=== PATIENT | female | born 2005 | race Caucasian/White ===

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

== ENCOUNTER 2024-10-28 07:54 | Outpatient (OUT) | payer MEDICAID, SELFPAY ==
--- OUTSIDE RECORDS SUMMARY | 2024-10-28 07:58 | XMS_ITS | CCD ---
Author Organization [facility] Care Team Providers Care Sales Representative Graphic Art Name Role Phone MD Kanwal Gunter Primary Care Provider [phone] MD Kanwal Gunter Attending Provider DR KANWAL GUNTER Primary Care Unavailable JANI, DR SCHOFIELD Admitting Unavailable JANI, DR SCHOFIELD Attending Unavailable JANI, DR SCHOFIELD Consulting Unavailable JANI, DR SCHOFIELD Admitting Unavailable JANI, DR SCHOFIELD Attending Unavailable JANI, DR SCHOFIELD Consulting Unavailable JANI, DR SCHOFIELD Primary Care Unavailable Kanwal Gunter Attending Unavailable Kanwal Gunter Primary Care Unavailable Kanwal Gunter Admitting Unavailable Problems Problem Classification Problem Date Documented Da te Episodic/Chronic Deficiency and other anemia (1 source) Anemia, unspecified; Translations: [ANEMIA UNSPECIFIED] Onset: 01-24-2022 Episodic Diabetes mellitus without complication (1 source) Other abnormal glucose; Translations: [OTHER ABNORMAL GLUCOSE] Onset: 01-24-2022 Episodic Peripheral and visceral atherosclerosis (4 sources) Peripheral vascular disease, unspecified; Translations: [PERIPHERAL VASCULAR DISEASE UNS] Onset: 02-22-2022 Chronic Unclassified (1 source) R06.02 - Shortness of breath; Translations: [R06.02 - Shortness of breath] Onset: 01-25-2022 Results Test Name Value Interpretation Reference Range Facility T4 [facility] 02-24-2022 T4 [Mass/Vol] 8.7 ug/dL Normal 4.5-12.0 [facility] Comment on above: Performed By: #### T 4LC #### [facility] [address] [address] [address] Jah Carcamo FREE T3on 02-22-2022 FREE T3 3.63 pg/mlL Normal 2.91-4.70 [facility] Comment on above: Performed By: #### T SH, FT3 #### [facility] [address] [address] [address] Jah Carcamo TSHon 02-22-2022 TSH 0.475 uIU/mL Critically low 0.516-4.130 [facility] Comment on above: Performed By: #### T SH, FT3 #### [facility] [address] [address] [address] Jah Carcamo TSH RANGE SEE BELOW Normal [facility] Comment on above: Result Comment: <0.3 4 UIU/ml HYPERTHYROID 0.34-5.60 UIU/ml EUTHYROID >5.60 UIU/ml HYPOTHYROID Performed By: #### T SH, FT3 #### [facility] [address] [address] [address] Jah Carcamo ECH echo transthoracicon ECH echo transthoracic [facility] [place] [place] [address] Echocardiogram Signed Patient: Kevin Figueredo MR#: [id number] 91 : 2005 Acct:[id number] Age/Sex: 16 / F ADM Date: 01/25/22 Loc: Room: Type: [facility] Attending Dr: Kanwal Gunter MD Ordering Provider: Kanwal Gunter MD Date of Service: 01/25/22/ ECH/ECH echo transthoracic: CHEST PAIN, SOB Copies to: MD Kanwal Denise MD : 2005 (MM/DD/YYYY) Gender: Female Age: 16 Years Ordering Physician: Kanwal Gunter Height: 67.72 in Weight: 145.002 lb Performed By: HANG Hernández BSA: 1.777 m2 HR: 58 bpm Reason For Study: CHEST PAIN, SOB History: ??Raynauds??, hypothyroidism + + MMode/2D Measurements Calculations IVSd: 0.92 cm RVDd: 2.26 cm IVSs: 0.82 cm LVIDd: 4.7 cm LVPWd: 0.83 cm LVIDs: 3.2 cm LVPWs: 1.05 cm FS: 31.4 % IVS/LVPW: 1.10 Ao root diam: 2.14 cm LA dimension: 3.1 cm LA/Ao: 1.45 Doppler Measurements Calculations MV E max joni: 98.5 cm/sec Lat Peak E' Joni: 17.5 cm/sec MV A max joni: 42.7 cm/sec Med Peak E' Joni: 13.9 cm/sec MV E/A: 2.31 E/E' med: 7.1 MV dec slope: 256.5 cm/sec?? MV dec time: 0.38 sec Interpretation Summary No cardiac disease identified. Cannot rule out bicuspid aortic valve based on these images. Recommend additional images at patient's convenience Study 2D M-Mode and Doppler with Color Flow. Levocardia. Abdominal situs solitus. Atrial situs solitus. D Ventricular Loop. S Normal position great vessels. Normal right atrial size. Normal left atrial size. Normal right ventricle structure and size. Normal left ventricle structure and size. Intact ventricular septum. Normal right ventricular systolic function. Normal left ventricular systolic function. Normal pulmonic valve velocity. Mild pulmonic valve insufficiency. Normal aortic valve velocity. No right pulmonary artery stenosis. No left pulmonary artery stenosis. Ascending aortic velocity normal. Descending aortic velocity normal. Normal tricuspid valve. Normal mitral valve. Normal pulmonic valve. Cannot rule out bicuspid aortic valve based on these images. Normal size aorta. No evidence of coarctation of the aorta. Normal pulmonary artery branches. No patent ductus arteriosus. Normal systemic venous drainage. Normal pulmonary venous drainage. Normal coronary artery origins. Normal superior vena cava velocity. Normal inferior vena cava velocity. Normal pulmonary vein velocity. Normal tricuspid valve velocity. Mild tricuspid valve insufficiency. Normal mitral valve velocity. No ventricular shunt. No patent ductus arteriosus detected. No pericardial effusion. + + + + + + : Electronically signed by: Nat Arroyo : : : : on: 01/27/2022, 8:28 PM : Transcribed By: ELOISA Performed At: 01/25/22 1445 Signed By: Nat Arroyo MD 01/27/222028 [facility] HILDA by IFAon 01-22-2022 Antinuclear Antibodies, IFA Negative Normal [facility] Comment on above: Result Comment: Nega tive <1:80 Borderline 1:80 Positive >1:80 ICAP nomenclature: AC-0 For more information about Hep-2 cell patterns use ANApatterns.org, the official website for the International Consensus on Antinuclear Antibody (HILDA) Patterns (ICAP). Performed By: #### C BC #### [facility] [address] [place] [address] Dr. Jah Carcamo ANTISTREPTOLYSIN O AB (ASO)o n 01-21-2022 Antistreptolysin O Ab 65.0 IU/mL Normal 0.0-200.0 [facility] Comment on above: Performed By: #### C BC #### [facility] [address] [place] [address] Dr. Jah Carcamo RHEUMATOID FACTORon 01-22-20 RA Latex Turbid. <10.0 Normal <14.0 [facility] Comment on above: Performed By: #### R F #### [facility] [address] [place] [address] Dr. Jah Carcamo CBC AUTO DIFFon 01-20-2022 BASO # 0.0 103/ul Normal 0.0-0.1 [facility] Comment on above: Performed By: #### C BC #### [facility] [address] [address] [address] Jah Carcamo Basophils/100 WBC (Bld) 0.6 % Normal 0.2-2.0 [facility] Comment on above: Performed By: #### C BC #### [facility] [address] [address] [address] Jah Carcamo EO # 0.3 103/ul Normal 0.0-0.7 [facility] Comment on above: Performed By: #### C BC #### [facility] [address] [address] [address] Jah Carcamo Eosinophils/100 WBC (Bld) 3.7 % Normal 0.9-7.0 [facility] Comment on above: Performed By: #### C BC #### [facility] [address] [address] [address] Jah Carcamo Erythrocyte distribution width (RBC) [Ratio] 15.5 % Critically high 11.0-15.0 [facility] Comment on above: Performed By: #### C BC #### [facility] [address] [address] [address] Jah Carcamo Hematocrit (Bld) [Volume fraction] 39.5 % Normal 36.0-48.0 [facility] Comment on above: Performed By: #### C BC #### [facility] [address] [address] [address] Jah Carcamo Hemoglobin (Bld) [Mass/Vol] 12.6 g/dL Normal 12.0-16.0 [facility] Comment on above: Performed By: #### C BC #### [facility] [address] [address] [address] Jah Carcamo IG # 0.02 10e3/ul Normal 0.00-0.03 [facility] Comment on above: Performed By: #### C BC #### [facility] [address] [place] [address] Dr. Jah Carcamo IG % 0.3 % Normal 0.0-0.5 [facility] Comment on above: Performed By: #### C BC #### [facility] [address] [place] [address] Dr. Jah Carcamo LYMPH # 2.8 103/ul Normal 1.2-3.8 [facility] Comment on above: Performed By: #### C BC #### [facility] [address] [place] [address] Dr. Jah Carcamo Lymphocytes/100 WBC (Bld) 39.9 % Normal 20.5-60.0 [facility] Comment on above: Performed By: #### C BC #### [facility] [address] [place] [address] Dr. Jah Carcamo MANUAL DIFF REQ NO Normal [facility] Comment on above: Performed By: #### C BC #### [facility] [address] [place] [address] Dr. Jah Carcamo MCH (RBC) [Entitic mass] 26.9 pg Normal 26.7-34.0 [facility] Comment on above: Performed By: #### C BC #### [facility] [address] [place] [address] Dr. Jah Carcamo MCHC (RBC) [Mass/Vol] 31.9 g/dL Normal 29.9-35.2 [facility] Comment on above: Performed By: #### C BC #### [facility] [address] [place] [address] Dr. Jah Carcamo MCV (RBC) [Entitic vol] 84.4 fL Normal 79.1-95.6 [facility] Comment on above: Performed By: #### C BC #### [facility] [address] [place] [address] Dr. Jah Carcamo MONO # 0.6 103/ul Normal 0.3-0.8 [facility] Comment on above: Performed By: #### C BC #### [facility] [address] [place] [address] Dr. Jah Carcamo Monocytes/100 WBC (Bld) 9.1 % Normal 1.7-12.0 [facility] Comment on above: Performed By: #### C BC #### [facility] [address] [place] [address] Dr. Jah Carcamo NEUT # 3.3 103/ul Normal 1.4-6.5 [facility] Comment on above: Performed By: #### C BC #### [facility] [address] [place] [address] Dr. Jah Carcamo Neutrophils/100 WBC (Bld) 46.4 % Normal 43.0-75.0 [facility] Comment on above: Performed By: #### C BC #### [facility] [address] [place] [address] Dr. Jah Carcamo Platelet mean volume (Bld) [Entitic vol] 10.0 fL Normal 9.5-13.5 [facility] Comment on above: Performed By: #### C BC #### [facility] [address] [place] [address] Dr. Jah Carcamo PLT 344 103/ul Normal 150-450 [facility] Comment on above: Performed By: #### C BC #### [facility] [address] [place] [address] Dr. Jah Carcamo RBC 4.68 106/ul Normal 3.40-5.30 [facility] Comment on above: Performed By: #### C BC #### [facility] [address] [place] [address] Dr. Jah Carcamo WBC 7.0 103/ul Normal 4.0-11.0 [facility] Comment on above: Performed By: #### C BC #### [facility] [address] [place] [address] Dr. Jah Carcamo CRPon 01-20-2022 CRP [Mass/Vol] mg/L Normal <=1.0 [facility] Comment on above: Performed By: #### C BC #### [facility] [address] [place] [address] Dr. Jah Carcamo FREE THYROXINE INDEX T7on FTI 0.63 Normal [facility] Comment on above: Performed By: #### L IPID, TSH, CMP, CRP, T7, URIC #### [facility] [address] [address] [address] Jah Carcamo T3U 33.0 % Normal 23.5-40.5 [facility] Comment on above: Performed By: #### L IPID, TSH, CMP, CRP, T7, URIC #### [facility] [address] [address] [address] Jah Carcamo T4 [Mass/Vol] 1.90 ug/dL Critically low 5.53-11.00 [facility] Comment on above: Performed By: #### L IPID, TSH, CMP, CRP, T7, URIC #### [facility] [address] [address] [address] Jah Carcamo GLYCOHEMOGLOBIN A1Con 2021 ADA RECOMMENDATION ADA THERAPEUTIC TARGET 6.0 - 7.0 ACTION SUGGESTED > 7.0 Normal [facility] Comment on above: Performed By: #### A 1C #### [facility] [address] [address] [address] Jah Carcamo Glucose [Mass/Vol] 91 mg/dL Normal [facility] Comment on above: Performed By: #### A 1C #### [facility] [address] [address] [address] Jah Carcamo HbA1c (Bld) [Mass fraction] 4.8 % Normal <=6.0 [facility] Comment on above: Performed By: #### A 1C #### [facility] [address] [address] [address] Jah Carcamo IRONon 01-20-2022 Iron [Mass/Vol] 151.0 ug/dL Normal 37.0-170.0 [facility] Comment on above: Performed By: #### I ANABELLA #### [facility] [address] [address] [address] Jah Carcamo LIPID PROFILEon 01-20-2022 CHOL-HDL RATIO NORM SEE BELOW Normal [facility] Comment on above: Result Comment: 3.3 - 4.4 LOW RISK 4.4 - 7.1 AVERAGE RISK 7.1 - 11.0 MODERATE RISK >11.0 HIGH RISK Performed By: #### C BC #### [facility] [address] [address] [address] Jah Carcamo Cholesterol [Mass/Vol] 147 mg/dL Normal 104-227 [facility] Comment on above: Performed By: #### C BC #### [facility] [address] [address] [address] Jah Carcamo Cholesterol in HDL [Mass/Vol] 53 mg/dL Normal 29-69 [facility] Comment on above: Performed By: #### C BC #### [facility] [address] [place] [address] Dr. Jah Carcamo Cholesterol in LDL [Mass/Vol] 82.8 mg/dL Normal 46.0-140.0 [facility] Comment on above: Performed By: #### C BC #### [facility] [address] [address] [address] Jah Carcamo Cholesterol.total/Chol esterol in HDL [Mass ratio] 2.8 {ratio} Normal [facility] Comment on above: Performed By: #### C BC #### [facility] [address] [place] [address] Dr. Jah Carcamo HDL NORMAL > or = 60 mg/dl - LOW CARDIOVASCULAR RISK <40 mg/dl - HIGH CARDIOVASCULAR RISK Normal [facility] Comment on above: Performed By: #### C BC #### [facility] [address] [place] [address] Dr. Jah Carcamo LDL CALC NORMAL SEE BELOW Normal [facility] Comment on above: Result Comment: <100 mg/dl OPTIMAL 100 - 129 mg/dl NEAR OR ABOVE OPTIMAL 130 - 159 mg/dl BORDERLINE HIGH 160 - 189 mg/dl HIGH >190 mg/dl VERY HIGH Performed By: #### C BC #### [facility] [address] [place], [place] [address] Dr. Jah Carcamo Triglyceride [Mass/Vol] 56 mg/dL Normal 53-208 [facility] Comment on above: Performed By: #### C BC #### [facility] [address] [place] [address] Dr. Jah Cacramo VLDL CALC 11.2 mg/dL Normal [facility] Comment on above: Performed By: #### C BC #### [facility] [address] [place] [address] Dr. Jah Carcamo PROF 14(COMP METB)on 022 Albumin [Mass/Vol] 3.9 g/dL Normal 3.4-5.0 [facility] Comment on above: Performed By: #### C BC #### [facility] [address] [place] [address] Dr. Jah Carcamo Albumin/Globulin [Mass ratio] 1.0 {ratio} Normal [facility] Comment on above: Performed By: #### C BC #### [facility] [address] [place] [address] Dr. Jah Carcamo ALP [Catalytic activity/Vol] 69 U/L Normal 65-260 [facility] Comment on above: Performed By: #### C BC #### [facility] [address] [place] [address] Dr. Jah Carcamo ALT [Catalytic activity/Vol] 14 U/L Normal 14-59 [facility] Comment on above: Performed By: #### C BC #### [facility] [address] [place] [address] Dr. Jah Carcamo Anion gap [Moles/Vol] 12.3 mmol/L Normal [facility] Comment on above: Performed By: #### C BC #### [facility] [address] [place] [address] Dr. Jah Carcamo AST [Catalytic activity/Vol] 17 U/L Normal 15-37 [facility] Comment on above: Performed By: #### C BC #### [facility] [address] [place] [address] Dr. Jah Carcamo Bilirubin [Mass/Vol] 0.6 mg/dL Normal 0.2-1.3 [facility] Comment on above: Performed By: #### C BC #### [facility] [address] [place] [address] Dr. Jah Carcamo Calcium [Mass/Vol] 9.0 mg/dL Normal 8.5-10.1 [facility] Comment on above: Performed By: #### C BC #### [facility] [address] [address] [address] Jah Carcamo Chloride [Moles/Vol] 105 mmol/L Normal 98-107 [facility] Comment on above: Performed By: #### C BC #### [facility] [address] [address] [address] Jah Carcamo CO2 [Moles/Vol] 26.3 mmol/L Normal 22.0-30.[address] [facility] Comment on above: Performed By: #### C BC #### [facility] [address] [place] [address] Dr. Jah Carcamo Creatinine [Mass/Vol] 0.66 mg/dL Normal 0.52-1.04 [facility] Comment on above: Performed By: #### C BC #### [facility] [address] [place] [address] Dr. Jah Carcamo Globulin (S) [Mass/Vol] 3.7 g/dL Normal [facility] Comment on above: Performed By: #### C BC #### [facility] [address] [place] [address] Dr. Jah Carcamo Glucose [Mass/Vol] 85 mg/dL Normal 74-106 [facility] Comment on above: Performed By: #### C BC #### [facility] [address] [place] [address] Dr. Jah Carcamo Potassium [Moles/Vol] 3.6 mmol/L Normal 3.4-5.0 [facility] Comment on above: Performed By: #### C BC #### [facility] [address] [place] [address] Dr. Jah Carcamo Protein [Mass/Vol] 7.6 g/dL Normal 6.1-8.2 [facility] Comment on above: Performed By: #### C BC #### [facility] [address] [place] [address] Dr. Jah Carcamo Sodium [Moles/Vol] 140 mmol/L Normal 137-145 [facility] Comment on above: Performed By: #### C BC #### [facility] [address] [place] [address] Dr. Jah Carcamo Urea nitrogen [Mass/Vol] 9.0 mg/dL Normal 6.4-19.3 [facility] Comment on above: Performed By: #### C BC #### [facility] [address] [place] [address] Dr. Jah Carcamo Urea nitrogen/Creatinine [Mass ratio] 13.6 mg/mg Normal [facility] Comment on above: Performed By: #### C BC #### [facility] [address] [place] [address] Dr. Jah Carcamo SED RATE WESTERGRENon 2021 SED RATE <1 Normal <=20 [facility] Comment on above: Performed By: #### S EDR #### [facility] [address] [place] [address] Dr. Jah Carcamo TSHon 01-20-2022 TSH 1.771 uIU/mL Normal 0.430-3.750 [facility] Comment on above: Performed By: #### L IPID, TSH, CMP, CRP, T7, URIC #### [facility] [address] [place] [address] Dr. Jah Carcamo TSH RANGE SEE BELOW Normal [facility] Comment on above: Result Comment: <0.3 4 UIU/ml HYPERTHYROID 0.34-5.60 UIU/ml EUTHYROID >5.60 UIU/ml HYPOTHYROID Performed By: #### L IPID, TSH, CMP, CRP, T7, URIC #### [facility] [address] [place] [address] Dr. Jah Carcamo URIC ACID SERUMon 01-20-2022 Urate [Mass/Vol] 4.8 mg/dL Normal 2.5-6.2 [facility] Comment on above: Performed By: #### C BC #### [facility] [address] [place] [address] Dr. Jah Carcamo Encounters Encounter Date Encounter Type Care Provider Facility Start: 02-22-2022 End: 02-23-[address] KANWAL GUNTER Facility:[facility] Start: 01-25-2022 End: 01-25-2022 ambulatory Kanwal Gunter Facility:[facility] Start: 01-25-2022 End: 01-25-2022 Patient encounter procedure MD Kanwal Gunter Work Phone: [facility] Start: 01-20-2022 End: 01-21-[address] KANWAL GUNTER Facility: Payers Date Payer Category Payer Self-pay [id number] 2022 Unknown [id number] 1982 Unknown [id number] 1982 Unknown [id number] [id number] [id number] 1959 Unknown [id number] Unknown [id number] [id number] Social History Date Type Detail Facility Tobacco smoking stat [facility] Unknown if ever smoked [facility] Work Phone: Start: 2005 Sex Assigned At Female F [facility] Evaluation note Note Date & Type Note Facility Evaluation note No assessment information availa ble [facility] Work Phone: Chief Complaint and Reason for Visit Chief Complaint chest pain, sob Advance Directives No Advanced Directives Records Found Advance Directive Response Recorded Date/ Time Advance Directives No January 20 11:51am Summary Purpose Family History No Family History Records FoundNo Family History Records Found Additional Source Comments Care Teams (unrecognized sec tion and content) Team Status: Inactive Member Role Status Dates Kanwal Gunter MD Primary Care Provider, Attending Pr manjit Active Team Status: Active Member Role Status Dates Kanwal Gunter MD Primary Care Provider Active Goals (unrecognized section and content) Goals may be documented in a n alternate section INFORMATION SOURCE (unrecogn ized section and content) DATE CREATED AUTHOR 02/25/2022 [facility] DATE CREATED AUTHOR AUTHOR'S JILL LOMAS 11/04/2022 [facility] FOR RECORDS PERTAINING TO PATIENTS WHO ARE OR HAVE BEEN ENROLLED IN A CHEMICAL DEPENDENCY/SUBSTANCEABUSE PROGRAM, SOME INFORMATION MAY BE OMITTED. This clinical summary was aggregated from multiple sources. Caution should be exercised in using it in the provision of clinical care. This summary normalizes information from multiple sources, and as a consequence, information in this document may materially change the coding, format and clinical context of patient data. In addition, data may be omitted in some cases. CLINICAL DECISIONS SHOULD BE BASED ON THE PRIMARY CLINICAL RECORDS. [employer] provides no warranty or guarantee of the accuracy or completeness of information in this document.
[2024-10-28 08:21] LABS: Basophils Absolute Auto 0.1 10^3/uL (0.0-0.1); Basophils Percent Auto 1.1 % (0.2-2.0); Eosinophils Absolute Auto 0.5 10^3/uL (0.0-0.7); Eosinophils Percent Auto 7.6 % (0.9-7.0); Hematocrit 42.1 % (36.0-48.0); Hemoglobin 13.8 g/dL (12.0-16.0); Immature Granulocytes Abs Auto 0.02 10^3/uL (0.00-0.03); Immature Granulocytes Pct Auto 0.3 % (0.0-0.5); Lymphocytes Absolute Auto 2.3 10^3/uL (1.2-3.8); Lymphocytes Percent Auto 36.2 % (20.5-60.0); Mean Corpuscular HGB Conc 32.8 g/dL (29.9-35.2); Mean Corpuscular Hemoglobin 29.1 pg (26.7-34.0); Mean Corpuscular Volume 88.6 fL (81.0-99.0); Mean Platelet Volume 9.8 fL (9.5-13.5); Monocytes Absolute Auto 0.4 10^3/uL (0.3-0.8); Neutrophils Absolute Auto 3.2 10^3/uL (1.4-6.5); Neutrophils Percent Auto 48.8 % (43.0-75.0); Platelet Count 407 10^3/uL (150-450); Red Blood Count 4.75 10^6/uL (4.20-5.40); Red Cell Distribution Width 13.3 % (11.0-15.0); White Blood Count 6.5 10^3/uL (4.0-11.0)
[2024-10-28 09:00] LABS: Estimated Average Glucose 88 mg/dL; Glycohemoglobin A1C 4.7 % (4.5-6.2)
[2024-10-28 10:14] LABS: Alanine Aminotransferase 17 U/L (14-59); Alkaline Phosphatase 43 U/L (46-116); Anion Gap 12.5; Aspartate Amino Transferase 14 U/L (15-37); Bilirubin Total 0.4 mg/dL (0.2-1.0); Calcium 9.5 mg/dL (8.5-10.1); Carbon Dioxide 24.4 mmol/L (21.0-32.0); Chloride 106 mmol/L (98-107); Chol HDL Ratio 3.7; Cholesterol 220 mg/dL (104-227); Estimated GFR (African America >60 (>=60 mL/min/1.73m^2); Estimated GFR (Non-African Ame >60 (>=60 mL/min/1.73m^2); Free T3 2.33 pg/mL (2.91-4.70); Globulin 3.9 g/dL; Glucose 75 mg/dL (74-106); HDL Cholesterol 60 mg/dL (29-69); LDL Cholesterol Calculated 145.4 mg/dL; Potassium 3.9 mmol/L (3.5-5.1); Sodium 139 mmol/L (136-145); Thyroid Stimulating Hormone 0.697 uIU/mL (0.516-4.130); Total Protein 7.9 g/dL (6.4-8.2); Triglycerides 73 mg/dL (53-208); VLDL CHOLESTEROL 14.6 mg/dL
== END 2024-10-28 07:55 | disposition home or self-care (01) ==
LOC: LAB 07:55
PROVIDERS: PCP Family Medicine; Visit Provider Family Medicine
DX: I73.00 Raynaud's syndrome without gangrene (principal); R73.09 Other abnormal glucose; D64.9 Anemia, unspecified
CPT/HCPCS: 36415; 80053; 80061; 82306; 83036; 83540; 84436; 84443; 84481; 85025

== ENCOUNTER 2025-02-06 20:02 | Emergency (ER) | payer SELFPAY ==
[2025-02-06 20:08] VITALS: BP 131/90; PULSE 59; TEMP 37.1; O2SAT 99; BMI 23.5
--- OUTSIDE RECORDS SUMMARY | 2025-02-06 20:08 | XMS_ITS | CCD ---
Author Organization [facility] Care Team Providers Care Adolescent Coordinator Name Role Phone MD Kanwal Gunter Primary Care Provider [phone] MD Kanwal Gunter Attending Provider DR KANWAL GUNTER Primary Care Unavailable JANI, DR SCHOFIELD Admitting Unavailable JANI, DR SCHOFIELD Attending Unavailable JANI, DR SCHOFIELD Consulting Unavailable JANI, DR SCHOFIELD Admitting Unavailable JANI, DR SCHOFIELD Attending Unavailable JANI, DR SCHOFIELD Consulting Unavailable JANI, DR SCHOFIELD Primary Care Unavailable Kanwal Gunter Attending Unavailable Kanwal Gunter Primary Care Unavailable Kanwal Gunter Admitting Unavailable Kanwal Gunter MD Primary Care Provider [phone] Kanwal Gunter MD Primary Care Provider [phone] Medications Current Medications Medication Drug Class(es) Dates Sig (Normalized) Sig (Original) cholecalciferol 0.025 mg oral tablet (2 sources) Vitamin D take 1 tablet by mouth in the morning cholecalciferol 1,000 units tablet Take 1 tablet (1,000 Units total) by mouth in the morning. Active Ethinyl Estradiol / Ferrous fumarate / Norethindrone (2 sources) Estrogen take 1 tablet by mouth once daily LO LOESTRIN FE 1 mg-10 mcg (24)/10 mcg (2) tablet TAKE 1 TABLET BY MOUTH 1 TIME EACH DAY AT THE SAME TIME. Active levothyroxine sodium 0.075 mg oral tablet (2 sources) l-Thyroxine levothyroxine (SYNTHROID, LEVOTHROID) 75 MCG tablet TAKE 1 TABLET BY MOUTH EVERY MORNING ON AN EMPTY STOMACH ONCE A DAY 30 DAYS Active tadalafil 5 mg oral tablet (1 source) Phosphodiesterase 5 Inhibitor Start: take 1 tablet by mouth every other day tadalafiL (CIALIS) 5 mg tablet Indications: Raynaud's disease without gangrene , Acrocyanosis Take 1 tablet (5 mg total) by mouth every other day. 30 tablet 5 01/08/2025 Active Problems Problem Classification Problem Date Documented Da te Episodic/Chronic Deficiency and other anemia (1 source) Anemia, unspecified; Translations: [ANEMIA UNSPECIFIED] Onset: 01-24-2022 Episodic Diabetes mellitus without complication (1 source) Other abnormal glucose; Translations: [OTHER ABNORMAL GLUCOSE] Onset: 01-24-2022 Episodic Other circulatory disease (6 sources) Raynaud's disease; Translations: [Raynaud's syndrome without gangrene] 12-02-2024 Chronic Other circulatory disease (2 sources) Acrocyanosis; Translations: [Other specified peripheral vascular diseases] 01-08-2025 Chronic Other skin disorders (2 sources) Discoloration of skin; Translations: [Disorder of pigmentation, unspecified] Onset: 12-02-2024 12-02-2024 Episodic Peripheral and visceral atherosclerosis (4 sources) Peripheral vascular disease, unspecified; Translations: [PERIPHERAL VASCULAR DISEASE UNS] Onset: 02-22-2022 Chronic Unclassified (1 source) R06.02 - Shortness of breath; Translations: [R06.02 - Shortness of breath] Onset: 01-25-2022 Results Test Name Value Interpretation Reference Range Facility C-reactive proteinon 025 CRP [Mass/Vol] 0.4 mg/dL 0.000 - 0.744 mg/dL [facility] CRP [Mass/Vol]on 12-01-2024 [facility] ESR Photometric method (Bld) [Velocity]on 12-01-2024 [facility] Erythrocyte Sedimentation Ra te (ESR)on 12-01-2024 ESR Photometric method (Bld) [Velocity] 3 mm/h 0 - 20 mm/h [facility] HCG.beta subunit IA 3rd IS Q non 12-01-2024 HCG.beta subunit Qn mIU/mL [facility] Comment on above: NEW REFERENCE RANGE WEEKS (SINCE LMP) MIU/mL 3 WEEKS 5 - 50 4 WEEKS 5 - 426 5 WEEKS 18 - 7,340 6 WEEKS 1,080 - 56,500 7-8 WEEKS 7,650 - 229,000 9-12 WEEKS 25,700 - 288,000 13-16 WEEKS 13,300 - 254,000 17-24 WEEKS 4,060 - 165,400 25-40 WEEKS 3,640 - 117,000 MALES AND NON- FEMALES - <5 MIU/mL This test has been FDA approved for use in only. Elevated levels are not necessarily diagnostic for trophoblastic or nontrophoblastic neoplasms. [facility] Thyroid profile includes TSH FT4on 12-01-2024 Free T4 [Mass/Vol] 0.94 ng/dL 0.61 - 1. 60 ng/dL [facility] TSH Qn 0.53 m[IU]/L [facility] T4 [facility]on 02-24-2022 T4 [Mass/Vol] 8.7 ug/dL Normal 4.5-12.0 [facility] Comment on above: Performed By: #### T 4LC #### [facility] [address] [place] [address] Dr. Jah Carcamo FREE T3on 02-22-2022 FREE T3 3.63 pg/mlL Normal 2.91-4.70 [facility] Comment on above: Performed By: #### T SH, FT3 #### [facility] [address] [place] [address] Dr. Jah Carcamo TSHon 02-22-2022 TSH 0.475 uIU/mL Critically low 0.516-4.130 [facility] Comment on above: Performed By: #### T SH, FT3 #### [facility] [address] [place] [address] Dr. Jah Carcamo TSH RANGE SEE BELOW Normal [facility] Comment on above: Result Comment: <0.3 4 UIU/ml HYPERTHYROID 0.34-5.60 UIU/ml EUTHYROID >5.60 UIU/ml HYPOTHYROID Performed By: #### T SH, FT3 #### [facility] [address] [place] [address] Dr. Jah Carcamo ECH echo transthoracicon [facility] echo transthoracic [facility] [place] [address] Echocardiogram Signed Patient: Mitra Castillo MR#: [id number] 91 : 2005 Acct:[id number] Age/Sex: 16 / F ADM Date: 01/25/22 Loc: Room: Type: [facility] Attending Dr: Kanwal Gunter MD Ordering Provider: Kanwal Gunter MD Date of Service: 01/25/22/ [facility] echo transthoracic: CHEST PAIN, SOB Copies to: [...] 1445 Signed By: Nat Arroyo MD 01/27/222028 [facility] HILDA by IFAon 01-22-2022 Antinuclear Antibodies, IFA Negative Normal [facility] Comment on above: Result Comment: Nega tive <1:80 Borderline 1:80 Positive >1:80 ICAP nomenclature: AC-0 For more information about Hep-2 cell patterns use ANApatterns.org, the official website for the International Consensus on Antinuclear Antibody (HILDA) Patterns (ICAP). Performed By: #### C BC #### [facility] [address] [place] [address] Dr. Jah Carcamo ANTISTREPTOLYSIN O AB (ASO)o n 01-21-2022 Antistreptolysin O Ab 65.0 IU/mL Normal 0.0-200.0 [facility] Comment on above: Performed By: #### C BC #### [facility] [address] [place] [address] Dr. Jah Carcamo RHEUMATOID FACTORon 01-22-20 RA Latex Turbid. <10.0 Normal <14.0 [facility] Comment on above: Performed By: #### R F #### [facility] [address] [place] [address] Dr. Jah Carcamo CBC AUTO DIFFon 01-20-2022 BASO # 0.0 103/ul Normal 0.0-0.1 [facility] Comment on above: Performed By: #### C BC #### [facility] [address] [place] [address] Dr. Jah Carcamo Basophils/100 WBC (Bld) 0.6 % Normal 0.2-2.0 [facility] Comment on above: Performed By: #### C BC #### [facility] [address] [place] [address] Dr. Jah Carcamo EO # 0.3 103/ul Normal 0.0-0.7 [facility] Comment on above: Performed By: #### C BC #### [facility] [address] [place] [address] Dr. Jah Carcamo Eosinophils/100 WBC (Bld) 3.7 % Normal 0.9-7.0 [facility] Comment on above: Performed By: #### C BC #### [facility] [address] [place] [address] Dr. Jah Carcamo Erythrocyte distribution width (RBC) [Ratio] 15.5 % Critically high 11.0-15.0 [facility] Comment on above: Performed By: #### C BC #### [facility] [address] [place] [address] Dr. Jah Carcamo Hematocrit (Bld) [Volume fraction] 39.5 % Normal 36.0-48.0 [facility] Comment on above: Performed By: #### C BC #### [facility] [address] [place] [address] Dr. Jah Carcamo Hemoglobin (Bld) [Mass/Vol] 12.6 g/dL Normal 12.0-16.0 [facility] Comment on above: Performed By: #### C BC #### [facility] [address] [place] [address] Dr. Jah Carcamo IG # 0.02 10e3/ul Normal 0.00-0.03 [facility] Comment on above: Performed By: #### C BC #### [facility] [address] [place] [address] Dr. Jah Carcamo IG % 0.3 % Normal 0.0-0.5 [facility] Comment on above: Performed By: #### C BC #### [facility] [address] [place] [address] Dr. Jah Carcamo LYMPH # 2.8 103/ul Normal 1.2-3.8 [facility] Comment on above: Performed By: #### C BC #### [facility] [address] [place] [address] Dr. Jah Carcamo Lymphocytes/100 WBC (Bld) 39.9 % Normal 20.5-60.0 [facility] Comment on above: Performed By: #### C BC #### [facility] [address] [place] [address] Dr. Jah Carcamo MANUAL DIFF REQ NO Normal [facility] Comment on above: Performed By: #### C BC #### [facility] [address] [place] [address] Dr. Jah Carcamo MCH (RBC) [Entitic mass] 26.9 pg Normal 26.7-34.0 [facility] Comment on above: Performed By: #### C BC #### [facility] [address] [place] [address] Dr. Jah Carcamo MCHC (RBC) [Mass/Vol] 31.9 g/dL Normal 29.9-35.2 [facility] Comment on above: Performed By: #### C BC #### [facility] [address] [place] [address] Dr. Jah Carcamo MCV (RBC) [Entitic vol] 84.4 fL Normal 79.1-95.6 [facility] Comment on above: Performed By: #### C BC #### [facility] [address] [place] [address] Dr. Jah Carcmao MONO # 0.6 103/ul Normal 0.3-0.8 [facility] Comment on above: Performed By: #### C BC #### [facility] [address] [place] [address] Dr. Jah Carcamo Monocytes/100 WBC (Bld) 9.1 % Normal 1.7-12.0 [facility] Comment on above: Performed By: #### C BC #### [facility] [address] [place] [address] Dr. Jah Carcamo NEUT # 3.3 103/ul Normal 1.4-6.5 [facility] Comment on above: Performed By: #### C BC #### [facility] [address] [place] [address] Dr. Jah Carcamo Neutrophils/100 WBC (Bld) 46.4 % Normal 43.0-75.0 [facility] Comment on above: Performed By: #### C BC #### [facility] [address] [place] [address] Dr. Jah Carcamo Platelet mean volume (Bld) [Entitic vol] 10.0 fL Normal 9.5-13.5 [facility] Comment on above: Performed By: #### C BC #### [facility] [address] [place] [address] Dr. Jah Carcamo PLT 344 103/ul Normal 150-450 [facility] Comment on above: Performed By: #### C BC #### [facility] [address] [place] [address] Dr. Jah Carcamo RBC 4.68 106/ul Normal 3.40-5.30 [facility] Comment on above: Performed By: #### C BC #### [facility] [address] [place] [address] Dr. Jah Carcamo WBC 7.0 103/ul Normal 4.0-11.0 [facility] Comment on above: Performed By: #### C BC #### [facility] [address] [place] [address] Dr. Jah Carcamo CRPon 01-20-2022 CRP [Mass/Vol] mg/L Normal <=1.0 [facility] Comment on above: Performed By: #### C BC #### [facility] [address] [place] [address] Dr. Jah Carcamo FREE THYROXINE INDEX T7on FTI 0.63 Normal [facility] Comment on above: Performed By: #### L IPID, TSH, CMP, CRP, T7, URIC #### [facility] [address] [place] [address] Dr. Jah Carcamo T3U 33.0 % Normal 23.5-40.5 [facility] Comment on above: Performed By: #### L IPID, TSH, CMP, CRP, T7, URIC #### [facility] [address] [place] [address] Dr. Jah Carcamo T4 [Mass/Vol] 1.90 ug/dL Critically low 5.53-11.00 [facility] Comment on above: Performed By: #### L IPID, TSH, CMP, CRP, T7, URIC #### [facility] [address] [address] [address] Jah Carcamo GLYCOHEMOGLOBIN A1Con 2021 ADA RECOMMENDATION ADA THERAPEUTIC TARGET 6.0 - 7.0 ACTION SUGGESTED > 7.0 Normal [facility] Comment on above: Performed By: #### A 1C #### [facility] [address] [place], [place] [address] Dr. Jah Carcamo Glucose [Mass/Vol] 91 mg/dL Normal [facility] Comment on above: Performed By: #### A 1C #### [facility] [address] [address] [address] Jah Carcamo HbA1c (Bld) [Mass fraction] 4.8 % Normal <=6.0 [facility] Comment on above: Performed By: #### A 1C #### [facility] [address] [place] [address] Dr. Jah Carcamo IRONon 01-20-2022 Iron [Mass/Vol] 151.0 ug/dL Normal 37.0-170.0 [facility] Comment on above: Performed By: #### I ANABELLA #### [facility] [address] [place] [address] Dr. Jah Carcamo LIPID PROFILEon 01-20-2022 CHOL-HDL RATIO NORM SEE BELOW Normal [facility] Comment on above: Result Comment: 3.3 - 4.4 LOW RISK 4.4 - 7.1 AVERAGE RISK 7.1 - 11.0 MODERATE RISK >11.0 HIGH RISK Performed By: #### C BC #### [facility] [address] [place] [address] Dr. Jah Carcamo Cholesterol [Mass/Vol] 147 mg/dL Normal 104-227 [facility] Comment on above: Performed By: #### C BC #### [facility] [id number] Jah Carcamo Cholesterol in HDL [Mass/Vol] 53 mg/dL Normal 29-69 [facility] Comment on above: Performed By: #### C BC #### [facility] [address] [address] [address] Jah Carcamo Cholesterol in LDL [Mass/Vol] 82.8 mg/dL Normal 46.0-140.0 [facility] Comment on above: Performed By: #### C BC #### [facility] [address] [address] [address] Jah Carcamo Cholesterol.total/Cho lesterol in HDL [Mass ratio] 2.8 {ratio} Normal [facility] Comment on above: Performed By: #### C BC #### [facility] [address] [address] [address] Jah Carcamo HDL NORMAL > or = 60 mg/dl - LO W CARDIOVASCULAR RISK <40 mg/dl - HIGH CARDIOVASCULAR RISK Normal [facility] Comment on above: Performed By: #### C BC #### [facility] [address] [place] [address] Dr. Jah Carcamo LDL CALC NORMAL SEE BELOW Normal [facility] Comment on above: Result Comment: <100 mg/dl OPTIMAL 100 - 129 mg/dl NEAR OR ABOVE OPTIMAL 130 - 159 mg/dl BORDERLINE HIGH 160 - 189 mg/dl HIGH >190 mg/dl VERY HIGH Performed By: #### C BC #### [facility] [address] [place] [address] Dr. Jah Carcamo Triglyceride [Mass/Vol] 56 mg/dL Normal 53-208 [facility] Comment on above: Performed By: #### C BC #### [facility] [address] [place] [address] Dr. Jah Carcamo VLDL CALC 11.2 mg/dL Normal [facility] Comment on above: Performed By: #### C BC #### [facility] [address] [place] [address] Dr. Jah Carcamo PROF 14(COMP METB)on 022 Albumin [Mass/Vol] 3.9 g/dL Normal 3.4-5.0 [facility] Comment on above: Performed By: #### C BC #### [facility] [address] [place] [address] Dr. Jah Carcamo Albumin/Globulin [Mass ratio] 1.0 {ratio} Normal [facility] Comment on above: Performed By: #### C BC #### [facility] [address] [place] [address] Dr. Jah Carcamo ALP [Catalytic activity/Vol] 69 U/L Normal 65-260 [facility] Comment on above: Performed By: #### C BC #### [facility] [address] [place] [address] Dr. Jah Carcamo ALT [Catalytic activity/Vol] 14 U/L Normal 14-59 [facility] Comment on above: Performed By: #### C BC #### [facility] [address] [place] [address] Dr. Jah Carcamo Anion gap [Moles/Vol] 12.3 mmol/L Normal [facility] Comment on above: Performed By: #### C BC #### [facility] [address] [place] [address] Dr. Jah Carcamo AST [Catalytic activity/Vol] 17 U/L Normal 15-37 [facility] Comment on above: Performed By: #### C BC #### [facility] [address] [place] [address] Dr. Jah Carcamo Bilirubin [Mass/Vol] 0.6 mg/dL Normal 0.2-1.3 [facility] Comment on above: Performed By: #### C BC #### [facility] [address] [place] [address] Dr. Jah Carcamo Calcium [Mass/Vol] 9.0 mg/dL Normal 8.5-10.1 [facility] Comment on above: Performed By: #### C BC #### [facility] [address] [place] [address] Dr. Jah Carcamo Chloride [Moles/Vol] 105 mmol/L Normal 98-107 [facility] Comment on above: Performed By: #### C BC #### [facility] [address] [place] [address] Dr. Jah Carcamo CO2 [Moles/Vol] 26.3 mmol/L Normal 22.0-30.0 [facility] Comment on above: Performed By: #### C BC #### [facility] [address] [place] [address] Dr. Jah Carcamo Creatinine [Mass/Vol] 0.66 mg/dL Normal 0.52-1.04 [facility] Comment on above: Performed By: #### C BC #### [facility] [address] [place] [address] Dr. Jah Carcamo Globulin (S) [Mass/Vol] 3.7 g/dL Normal [facility] Comment on above: Performed By: #### C BC #### [facility] [address] [place] [address] Dr. Jah Carcamo Glucose [Mass/Vol] 85 mg/dL Normal 74-106 [facility] Comment on above: Performed By: #### C BC #### [facility] [address] [place] [address] Dr. Jah Carcamo Potassium [Moles/Vol] 3.6 mmol/L Normal 3.4-5.0 [facility] Comment on above: Performed By: #### C BC #### [facility] [address] [place] [address] Dr. Jah Carcamo Protein [Mass/Vol] 7.6 g/dL Normal 6.1-8.2 [facility] Comment on above: Performed By: #### C BC #### [facility] [address] [place] [address] Dr. Jah Carcamo Sodium [Moles/Vol] 140 mmol/L Normal 137-145 [facility] Comment on above: Performed By: #### C BC #### [facility] [address] [place] [address] Dr. Jah Carcamo Urea nitrogen [Mass/Vol] 9.0 mg/dL Normal 6.4-19.3 [facility] Comment on above: Performed By: #### C BC #### [facility] [address] [place] [address] Dr. Jah Carcamo Urea nitrogen/Creatinine [Mass ratio] 13.6 mg/mg Normal [facility] Comment on above: Performed By: #### C BC #### [facility] [address] [place] [address] Dr. Jah Carcamo SED RATE [facility] 2021 SED RATE <1 Normal <=20 [facility] Comment on above: Performed By: #### S EDR #### [facility] [address] [place] [address] Dr. Jah Carcamo TSHon 01-20-2022 TSH 1.771 uIU/mL Normal 0.430-3.750 [facility] Comment on above: Performed By: #### L IPID, TSH, CMP, CRP, T7, URIC #### [facility] [address] [place] [address] [address] [address] Jah Carcamo TSH RANGE SEE BELOW Normal [facility] Comment on above: Result Comment: <0.3 4 UIU/ml HYPERTHYROID 0.34-5.60 UIU/ml EUTHYROID >5.60 UIU/ml HYPOTHYROID Performed By: #### L IPID, TSH, CMP, CRP, T7, URIC #### [facility] [address] [place] [address] Dr. Jah Carcamo URIC ACID SERUMon 01-20-2022 Urate [Mass/Vol] 4.8 mg/dL Normal 2.5-6.2 [facility] Comment on above: Performed By: #### C BC #### [facility] [address] [place], [place] [id number] Dr. Jah Carcamo Vital Signs Date Time Vital Sign Value Performing Clinician Faci juany 01-08-2025 10:02040 Body height 170.2 cm Quinton Kelly MD Work Phone: [facility] 01-08-2025 10:02040 Body mass index (BMI) [Ratio] 26.31 kg/m2 Quinton Kelly MD Work Phone: [facility] 01-08-2025 10:02040 Body weight 76.2 kg Quinton Kelly MD Work Phone: [facility] 01-08-2025 10:02-040 Diastolic blood pressure 62 mm[Hg] Quinton Kelly MD Work Phone: [facility] 01-08-2025 10:02-0400 Systolic blood pressure 97 mm[Hg] [facility] 12-01-2024 13:50-0500 Body weight 74.84 kg Melissagisele Nascimento DO [facility] 12-01-2024 13:50-0500 Diastolic blood pressure 89 mm[Hg] Melissa Nascimento DO [facility] 12-01-2024 13:50-0500 Heart rate 97 /min Melissa Nascimento DO [facility] 12-01-2024 13:50-0500 Systolic blood pressure 130 mm[Hg] Melissa Nascimento DO [facility] En[facility]ters Encounter Date Encounter Type Care Provider Facility Start: 01-08-2025 End: 01-08-2025 Office outpatient new 45 minutes Quinton Kelly MD Work Phone: [facility] Comment on above: Raynaud's disease wi thout gangrene (Primary Dx); Acrocyanosis Start: 12-01-2024 End: 12-01-2024 Office outpatient new 30 minutes Melissa Nascimento DO Work Phone: [facility] [place] Comment on above: Raynaud's disease wi thout gangrene Start: 02-22-2022 End: 02-23-[address] KANWAL GUNTER Facility:[facility] Start: 01-25-2022 End: 01-25-2022 ambulatory Kanwal Gunter Facility:[facility] Start: 01-25-2022 End: 01-25-2022 Patient encounter procedure MD Kanwal Gunter Work Phone: [facility] Start: 01-20-2022 End: 01-21-[address] KANWAL GUNTER Facility:[facility] Plan of Treatment Date Care Activity Detail Author Start: 05-03-2027 DTaP,Tdap and Td Vaccines (7 - Td or Tdap) DTaP,Tdap and Td Vaccines (7 - Td or Tdap) [facility] Start: 01-08-2026 Adult [email or web address] Start: 01-08-2026 Tobacco Screening Tobacco Screening [facility] Start: 12-01-2025 Tobacco Screening Tobacco Screening [facility] Start: 06-01-2025 Influenza vaccination Influenza Vacc ine [facility] Start: 03-02-2025 End: 03-02-2025 Patient encounter procedure 03/02/2025 10:00 AM EDT Office Visit [facility] [address] [place] [address] [address] [place] [address] Quinton Kelly MD [address], [address] [place] [address] [facility] Start: 01-08-2025 End: 01-08-2025 Patient encounter procedure 01/08/2025 10:00 AM EDT Office Visit [facility] [address] [address] Quinton Kelly MD [address] [place] [address] [facility] Start: 06-01-2024 Influenza vaccination Influenza Vacc ine [facility] Start: 2022 Adult BMI Follow Up Plan Adult BMI Follow Up Plan [facility] Start: 2022 Adult BMI Screening Adult BMI Screen ing [facility] Start: 2016 Depression Screening Depression Scre ening [facility] Antinuclear Ab, HEp- 2 Substrate, S Antinuclear Ab, HEp-2 Substrate, S Lab Routine Raynaud's disease without gangrene 12/01/2024 2:58 PM EST [facility] End: 12-01-2025 Antinuclear Ab, HEp-2 Substrate, S (HILDA by IFA) Antinuclear Ab, HEp-2 Substrate, S (HILDA by IFA) Lab Routine Raynaud's disease without gangrene 1 Occurrences starting 12/01/2024 until 12/01/2025 [facility] [facility] Work Phone: Comment on above: 1 Occurrences starti ng 12/01/2024 until 12/01/2025 US.doppler Extremity arteries - bilateral for physiologic artery study Vas art doppler upr bilat mult lev/PVR Vascular Ultrasound Routine Raynaud's disease without gangrene 12/01/2024 4:32 PM EST [facility] US.doppler Extremity arteries - bilateral for physiologic artery study limited Vas art doppler lwr limited single Vascular Ultrasound STAT Raynaud's disease without gangrene 12/01/2024 4:13 PM EST [facility] US.doppler Lower extremity artery - bilateral Vas art duplex lwr bilateral Vascular Ultrasound STAT Raynaud's disease without gangrene 12/01/2024 4:13 PM EST [facility] Immunizations Immunization Date Immunization Notes Care Provider Fa gino 10-21-2009 influenza virus vaccine, unspecified formulation Melissa Nascimento DO Work Phone: [facility] Payers Date Payer Category Payer Medicaid ANTH MEDICAID [id number] 2022 Self-pay [id number] 2022 Unknown [id number] 1982 Unknown [id number] 1982 Unknown [id number] 1959 Unknown [id number] Unknown [id number] Social History Date Type Detail Facility [facility] Work Phone: Start: 2004 Sex Assigned At Female F [facility] Start: 12-01-2024 [facility] History of tobacco use Passive smoker [facility] Start: 12-01-2024 Tobacco use and exposure Smokeless tobacco non-user [facility] Start: 12-02-2024 End: 01-08-2025 History of Social function [facility] Start: 12-02-2024 End: 01-08-2025 Tobacco use panel [facility] Start: 2004 Sex assigned at Not on file P [facility] Start: 01-30-2022 Sex Female (finding) [facility] History of Present illness Narrative 01-08-2025 Quinton Kelly MD - 01/08/2025 10:00 AM EDT Note Date & Type Note Facility 01-08-2025 History of Present illness Narrative Images from the original note were not included. [facility] [address] [place] [address] [facility] [id number] Subjective: Patient ID: Mitra Castillo is a 19 y.o. female. Chief Complaint Chief Complaint Patient presents with Follow-up Discuss Raynaud's History of Present Illness: The patient is a 19-year-old female who I am meeting for the 1st time. She was seen initially in consultation by my associate Dr. 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 This was felt to be Raynaud's disease, likely exacerbated by high caffeine intake. She reported up to 400 mg of caffeine daily but has cut back to around 100 mg as she has stopped drinking energy drinks. She denies any palpitations. She does appear to be somewhat anxious and tearful at the end of our discussion today however. She is mostly concerned about the toes and particularly her left great toe which feels achy and has a purple discoloration constantly. This has been going on for several years since she was a younger teenager. No servando ulceration has ever been reported. She has tried nifedipine but this was not well tolerated causing her to feel off. She is currently on levothyroxine and oral contraceptive therapy. No history of thrombosis is reported. No history of rheumatologic disorder or connective tissue disease that is known. Basic testing including HILDA titer were normal. Patient Active Problem List Diagnosis Discoloration of skin of toe Current Outpatient Medications: levothyroxine (SYNTHROID, LEVOTHROID) 75 MCG tablet, TAKE 1 TABLET BY MOUTH EVERY MORNING ON AN EMPTY STOMACH ONCE A DAY 30 DAYS, Disp: , Rfl: LO LOESTRIN FE 1 mg-10 mcg (24)/10 mcg (2) tablet, TAKE 1 TABLET BY MOUTH 1 TIME EACH DAY AT THE SAME TIME., Disp: , Rfl: cholecalciferol 1,000 units tablet, Take 1 tablet (1,000 Units total) by mouth in the morning. (Patient not taking: Reported on 01/08/2025), Disp: , Rfl: tadalafiL (CIALIS) 5 mg tablet, Take 1 tablet (5 mg total) by mouth every other day., Disp: 30 tablet, Rfl: 5 The following portions of the patient's history were reviewed and updated as appropriate: allergies, current medications, past family history, past medical history, past social history, past surgical history and problem list. Review of Systems: Review of Systems Respiratory: Negative for shortness of breath. Cardiovascular: Negative for chest pain and leg swelling. Gastrointestinal: Negative for abdominal pain and blood in stool. Genitourinary: Negative for hematuria. Skin: Positive for color change. Objective: Vitals BP 97/62 (BP Site: Right Arm, BP Postition: Sitting, BP CUFF SIZE: M (9-13 inches)) Ht 170.2 cm (5' 7 ) Wt 76.2 kg (168 lb) BMI 26.31 kg/m Vitals: 01/08/25 1002 BP: 97/62 BP Site: Right Arm BP Postition: Sitting BP CUFF SIZE: M (9-13 inches) Weight: 76.2 kg (168 lb) Height: 170.2 cm (5' 7 ) Physical Exam Physical Exam Vitals and nursing note reviewed. Constitutional: Appearance: Normal appearance. HENT: Head: Normocephalic and atraumatic. Cardiovascular: Rate and Rhythm: Normal rate and regular rhythm. Comments: Lele's and reverse Lele's testing performed in both hands was normal. Pulmonary: Effort: Pulmonary effort is normal. Musculoskeletal: General: Normal range of motion. Right lower leg: No edema. Left lower leg: No edema. Comments: Moving all ext equally Skin: General: Skin is cool and dry. Capillary Refill: Capillary refill takes 2 to 3 seconds. Coloration: Skin is cyanotic (Tips of toes and feet bilaterally). Comments: Elevation of feet and calf muscle pump exercise leads to normalization of color feet but persistent cyanotic features in the tips of the great toes bilaterally. Neurological: General: No focal deficit present. Mental Status: She is alert and oriented to person, place, and time. Psychiatric: Attention and Perception: Attention normal. Mood and Affect: Mood normal. Speech: Speech normal. Behavior: Behavior is cooperative. Studies Reviewed No results found for: DDIMER No results found for: GLU , CALCIUM , SODIUM , K , CO2 , BUN , CREATININE No results found for: WBC , HGB , HCT , MCV , PLT No results found for: CHOL No results found for: HDL No results found for: LDLCALC No results found for: TRIG No results found for: CHOLHDL Latest Reference Range & Units 12/01/24 14:57 Sed rate 0 - 20 mm/h 3 C-Reactive protein 0.000 - 0.744 mg/dL 0.4 Hcg-beta, serum mIU/mL <5 TSH 0.49 - 4.67 uIU/mL 0.53 T4, free 0.61 - 1.60 ng/dL 0.94 Antinuclear Ab, HEp-2 Substrate, S <1:80 (Negative) <1:80 (Negative) 12/03/24 Interpretation Summary Show Result ComparisonRight: Essentially normal PVR waveform contour at the upper arm and forearm. Multiphasic with diastolic flow reversal radial and ulnar CW Doppler waveforms. Vasoconstricted, dampened PPG waveform contour in 1st & 2nd finger. Left: Essentially normal PVR waveform contour at the upper arm and forearm. Multiphasic with diastolic flow reversal radial and ulnar CW Doppler waveforms. Essentially normal PPG waveform contour of all fingers. Conclusions: BILATERAL: Normal upper extremity arterial physiological examination at rest. 12/03/24 Interpretation Summary Show Result ComparisonRight: Essentially normal PVR waveform contour at the ankle. PT MARIO is 1.21; DP MARIO is 1.15. TBI is 0.65. Multiphasic with diastolic flow reversal PT and DP CW Doppler waveforms. Moderately abnormal PPG waveform contour at the 1st / 2nd, 4th & 5th toe. Left: Essentially normal PVR waveform contour at the ankle. PT MARIO is 1.19; DP MARIO is 1.14. TBI is 0.45. Multiphasic with diastolic flow reversal PT and DP CW Doppler waveforms. Moderately abnormal PPG waveform contour at the 1st & 3rd toe. Conclusions: BILATERAL: Normal lower extremity MARIO examination at rest. Wavefroms suggest small vessel (transmetatarsal level and below) arterial disease. 12/03/24 Interpretation Summary Show Result ComparisonRight: No plaque and spectral waveforms with diastolic flow reversal noted in the external iliac, common femoral, deep femoral, superficial femoral, popliteal, peroneal, posterior and anterior tibial artery without significant color flow disturbance. Left: No plaque and spectral waveforms with diastolic flow reversal noted in the external iliac, common femoral, deep femoral, superficial femoral, popliteal, peroneal, posterior and anterior tibial artery without significant color flow disturbance. Conclusions: BILATERAL: Normal lower extremity arterial duplex examination. Assesment: Mitra was seen today for follow-up. Diagnoses and all orders for this visit: Raynaud's disease without gangrene - tadalafiL (CIALIS) 5 mg tablet; Take 1 tablet (5 mg total) by mouth every other day. Acrocyanosis - tadalafiL (CIALIS) 5 mg tablet; Take 1 tablet (5 mg total) by mouth every other day. Plan Plan: 19-year-old female with history and findings suggestive for Raynaud's disease superimposed by acrocyanosis affecting the lower extremities only. Given the more significant symptoms that appear to be progressive affecting her great toes, particularly on the left, I suggested a phosphodiesterase inhibitor that would likely be better tolerated than vasodilating antihypertensive therapies. We talked about the off-label use of Tadalafil that is otherwise very well tolerated by younger individuals with very few side effects. I suggested a dose of 5 mg every other day to start and have her re-evaluated in a few months to assess for tolerance. We did talk about black box labile warnings such as sudden vision and sudden hearing loss but this is not likely to occur. She does not use nitrates and has never had topical nitroglycerin. I told her to watch her blood pressures as in rare cases blood pressure can be affected by Tadalafil. She will try to obtain this through [facility] with a paper prescription that was printed for her today. We went over noninvasive imaging that was ordered by Dr. Nascimento. She certainly does have evidence of vaso spasm in multiple toes including the great toes of both feet. Otherwise normal findings. I reinforced behavioral issues such as stress reduction, keeping core body temperature warm and feet and toes protected and warm and dry. Hand warmers have been utilized by her in the past. We also talked about her caffeine intake and I suggested slowly weaning further off of caffeinated drinks. It would be reasonable to have her down to 1 caffeinated cup of coffee a day and then switching to decaf otherwise. It was a good idea to stay away from the energy drinks that have copious amounts of caffeine sometimes up to 200 mg per can. As noted above, we will have the patient follow-up in a few months and at that time we will have a 40 minute slot for capillary microscopy. This note was created with the assistance of a speech recognition program. While intending to generate a timely document that accurately reflects the content of the visit, no guarantee can be provided that every grammatical or spelling mistake has been or will be identified or corrected. Thank you for your understanding. Quinton Kelly III, MD Total time spent was 40 minutes: Preparing to see the patient (e.g., review of tests) Obtaining and/or reviewing separately obtained history Performing a medically appropriate examination and/or evaluation Ordering medications, tests, or procedures Documenting clinical information in the electronic or other health record Independently interpreting results (not separately reported) and communicating results to the patient/family/caregiver documented in this encounter [facility] History of Present illness Narrative 12-01-2024 Melissa Nascimento DO - 12/01/2024 3:30 PM EST Note Date & Type Note Facility 12-01-2024 History of Present illness Narrative Images from the original note were not included. CC: Chief Complaint Patient presents with Raynauds New patient- pt c/o discolored toes, numbness and tingling, pain in fingers and toes. States toes are worse than fingers and has gotten worse over the last year. 18 y.o. female w/ h/o hypothyroidism and c/o bilat hands and L>R feet coolness, numbness and skin color changes. [employer] - 12/01/24: Pt states she has long-standing history of hands and feet being cold and intermittently numb w/ color changes (white, blue, red) especially noticed during outside sporting events. Over the last year she feels her symptoms have worsened. Was evaluated by PCP and underwent labs. States only abnormality was hypothyroidism for which she is now being treated. Denies any improvement and/or significant change in symptoms since starting thyroid treatment. States hands will be cold and pale/blue in color however will re-warm and become pink/red w/ heat, warm water etc. States feet used to be very similar however in the last couple of months her L toes no longer return to normal color and have become persistently painful. L toes are now constantly very cold, blue/dark in color and numb. Denies any family h/o autoimmune disease. Denies pain in LE w/ activity and continues to try and be active, running etc however just accepts her feet are numb and cold. PCP previously started nifedipine however it made her feel not well (very lightheaded, dizzy) and she stopped taking it. On same oral control she has been on for years and typically had regular light period. Approx 13 months ago she stopped having periods. Feels her period stopped at approx the same time that her symptoms started to significantly worsen. Denies tobacco use, diet pills, cold meds etc. Does consume approx 400mg caffeine daily. There is no problem list on file for this patient. There were no vitals taken for this visit. No past medical history on file. No past surgical history on file. ROS: Review of Systems Respiratory: Negative for shortness of breath. Cardiovascular: Negative for chest pain and leg swelling. Gastrointestinal: Negative for abdominal pain and blood in stool. Genitourinary: Negative for hematuria. Skin: Positive for color change. No regular smoking/vaping History of: no h/o CVA no h/o: DVT, PE no h/o: [place], CAD, HTN no h/o: PAD, PVD, claudication no h/o: dilated LE veins/varicose veins no h/o: DM no h/o: cancer No family history of auto-immune disorders and/or similar symptoms. Maternal family hx unknown (adopted) Physical Exam: Physical Exam Vitals and nursing note reviewed. Constitutional: Appearance: Normal appearance. HENT: Head: Normocephalic and atraumatic. Pulmonary: Effort: Pulmonary effort is normal. Musculoskeletal: General: Normal range of motion. Comments: Moving all ext equally Skin: General: Skin is warm and dry. Neurological: General: No focal deficit present. Mental Status: She is alert and oriented to person, place, and time. Psychiatric: Attention and Perception: Attention normal. Mood and Affect: Mood normal. Speech: Speech normal. Behavior: Behavior is cooperative. 12/01/24: Testing Reviewed: CBC with Differential: No results found for: WBC , RBC , HGB , HCT , PLT , MCV , MCH , MCHC , RDW BMP: No results found for: SODIUM , K , CL , CO2 , BUN , CREATININE , LABCREA , EGFR , GLU , LABGLUC , CA TSH: Lab Results Component Value Date TSH 0.53 12/01/2024 Assessment: Encounter Diagnosis Name Primary? Raynaud's disease without gangrene Mitra was seen today for raynauds. Diagnoses and all orders for this visit: Raynaud's disease without gangrene - [facility] [place], [place] Plan of care: Please note that total time spent was 30 minutes: Including but not limited to: Preparing to see the patient (e.g., review of tests) Obtaining and/or reviewing separately obtained history Performing a medically appropriate examination and evaluation Counseling and educating the patient/family/caregiver Ordering medications, tests, or procedures Documenting visit details Mitra was seen today for raynauds. Diagnoses and all orders for this visit: Raynaud's disease without gangrene - [facility] [place], [place] Mitra Castillo is a 18 y.o. White or female with h/o hypothyroidism and c/o bilat hands and L>R feet coolness, numbness and skin color changes. Cold hands/feet w/ L toe discoloration: Symptoms seem consistent w/ Raynaud's however L toes no longer w/ return to normal color between episodes. Extent of discoloration and severity of symptoms concerning for long-term risk of tissue loss. Stat lower MARIO/PVR and arterial duplex ordered. UE PVR ordered. Labs: CRP, ESR, HILDA by IFA, thyroid labs and bHCG ordered. Previously unable to tolerate nifedipine. Encouraged lifestyle modifications including avoiding cold, layering, rewarming, and limiting of vasoconstrictive medications/substances - specifically decrease caffeine use. Return to clinic in 4 wks after labs, lower MARIO/PVR, art duplex and UE PVR completed to review results and discuss further plan of care. Pt to notify office w/ any acute changes and/or progressive symptoms. SIGNATURE: Melissa Nascimento DO CC: No primary care provider on file. Kanwal Gunter MD documented in this encounter [facility] Evaluation note Note Date & Type Note Facility Evaluation note No assessment information [facility] Work Phone: Evaluation note Note Date & Type Note Facility Evaluation note Diagnosis Raynaud's disease without gangrene documented in this encounter [facility] Evaluation note Note Date & Type Note Facility Evaluation note Diagnosis Raynaud's disease without gangrene- Primary Acrocyanosis Other peripheral vascular disease documented in this encounter [facility] Instructions Note Date & Type Note Facility Instructions Not on filedocumented in this en counter [facility] Instructions Attachments Note Date & Type Note Facility Instructions The following attachments cannot be sent through Care Everywhere.Raynaud phenomenon (Finnish)documented in this encounter [facility] Chief Complaint and Reason for Visit Chief Complaint chest pain, sob Advance Directives Advance Directive Response Recorded Date/ Time Advance Directives No January 20, 2 022 11:51am Summary Purpose Family History No Family History Records FoundNo Family History Records Found Additional Source Comments Care Teams (unrecognized sec tion and content) Team Status: Inactive Member Role Status Lily Gunter MD Primary Care Provider, Attending Pr manjit Active Team Status: Active Member Role Status Lily Gunter MD Primary Care Provider Active Adolescent Coordinator Relationship Specialty Start Date End Date Kanwal Gunter MD [address] [place] [address] PCP - General Family Medicine 12/01/24 Adolescent Coordinator Relationship Specialty Start Date End Date Kanwal Gunter MD [address] [place] [address] PCP - General Family Medicine 12/01/24 Goals (unrecognized section and content) Goals may be documented in a n alternate sectionNot on filedocumented as of this encounterNot on filedocumented as of this encounter INFORMATION SOURCE (unrecogn ized section and content) DATE CREATED AUTHOR 02/25/2022 [facility] DATE CREATED AUTHOR AUTHOR'S ORGANIZ ATION 11/04/2022 [facility] Reason for Visit (unrecogniz ed section and content) Reason Comments Raynauds New patient- pt c/o discolored toes, numbness and tingling, pain in fingers and toes. States toes are worse than fingers and has gotten worse over the last year. Specialty Diagnoses / Procedures Referred By Contvannesa t Referred To Contact Vascular Surgery Diagnoses Raynaud's disease without gangrene Kanwal Gunter MD [address] [place] [address] Phone: tel:[phone] fax: [facility] [address] [place] [address] Phone: tel:[phone] fax: Referral ID Status Reason Start Date Expiration Date Visits Requested Visits Authorized [id number] Pending Review Specialty Services Required 10/31/2024 10/31/2025 1 1 Reason Comments Follow-up Discuss Raynaud's FOR RECORDS PERTAINING TO PATIENTS WHO ARE [...] BE BASED ON THE PRIMARY CLINICAL RECORDS. [employer] provides no warranty or guarantee of the accuracy or completeness of information in this document.
--- NOTE | 2025-02-06 20:19 | ED.BACK1 ---
Documented by User: BABS Bolanos 02/06/25 21:53 HPI HPI - Back Pain/Injury General Chief Complaint: Back Pain/Injury Stated Complaint: back pain Time Seen by Provider: 02/06/25 20:03 Source: patient Mode of arrival: Wheelchair Limitations: no limitations History of Present Illness HPI Narrative: Patient is a 19-year-old female who presents to the emergency department for evaluation of low back pain. She states 1 hour ago she was squatting weights and went to lower a 70 pound dumbbell to the ground. She states when she was bent over she felt a pop in her low back. Pain radiates into her hips and legs bilaterally with walking. She denies any numbness or tingling. No bowel or bladder incontinence. She has no concern for . She had no falls or direct injury to the back. Related Data Previous Rx's ?Medication ?Instructions ?Recorded hydrocodone 5 mg-acetaminophen 325 1 tab PO Q6H PRN pain 3 days #12 02/06/25 mg tablet tabs methocarbamol 750 mg tablet 750 mg PO TID PRN pain #20 tabs 02/06/25 methylprednisolone 4 mg tablets in See Rx Instructions .Route 02/06/25 a dose pack (Medrol (Rustam)) .COMPLEX #21 ea Allergies Allergy/AdvReac Type Severity Reaction Status Date / Time No Known Drug Allergies Allergy Verified 02/06/25 20:08 Opioid HPI Opioid Management Most Recent Opioid Data: Last Pain Scale 3 Today, 21:24 Review of Systems ROS Constitutional Denies: fever or chills Ears, nose, mouth, and throat Denies: throat pain or nasal congestion Cardiovascular Denies: chest pain Respiratory Denies: shortness of breath or cough Gastrointestinal Denies: nausea or vomiting Musculoskeletal Reports: back pain and extremity pain; Denies: neck pain Neurological Denies: numbness in extremities or weakness in extremities Hematologic/Lymphatic Denies: easy bruising or easy bleeding PFSH PFSH Social History Little interest or pleasure in doing things: not at all Feeling down, depressed, or hopeless: not at all Exam Narrative Exam Narrative: Gen.: Awake, alert, in no distress Head: Normocephalic, atraumatic ENT: Moist mucous membranes Respiratory: No respiratory distress Back: No bony tenderness of the T-spine or L-spine with diffuse tenderness of the lumbar spine and paraspinal muscles. No obvious deformity or step-off. Normal flexion and extension of the feet, normal flexion of the bilateral knees, no decrease in sensation to the medial thighs Extremities: Moves extremities equally, no injuries noted Psych: Normal mood and affect Neuro: No focal neuro deficit Skin: Warm, dry, intact Constitutional Vital Signs, click to edit/add: Last Vital Signs Temp 98.7 F 02/06/25 20:08 Pulse 59 L 02/06/25 20:08 Resp 18 02/06/25 20:08 BP 131/90 02/06/25 20:08 Pulse Ox 99 02/06/25 20:08 O2 Del Method Room Air 02/06/25 20:08 Course Vital Signs Vital signs: Vital Signs Temperature 98.7 F 02/06/25 20:08 Pulse Rate 59 L 02/06/25 20:08 Respiratory Rate 18 02/06/25 20:08 Blood Pressure 131/90 02/06/25 20:08 Pulse Oximetry 99 02/06/25 20:08 Oxygen Delivery Method Room Air 02/06/25 20:08 Temperature 98.7 F 02/06/25 20:08 Pulse Rate 59 L 02/06/25 20:08 Respiratory Rate 18 02/06/25 20:08 Blood Pressure 131/90 02/06/25 20:08 Pulse Oximetry 99 02/06/25 20:08 Oxygen Delivery Method Room Air 02/06/25 20:08 MDM - Back Pain/Injury MDM Narrative Medical decision making narrative: 2151: Patient medicated for pain, she has a benign neuroexam with no evidence of focal neurodeficit. CT of the lumbar spine is pending at this time. Case is turned over to attending physician for reevaluation and disposition. SHARED APC VISIT, PHYSICIAN ATTESTATION: [id number] I performed a substantive part of the MDM during the patient?s E/M visit. I personally evaluated and examined the patient. I personally made or approved the documented management plan and acknowledge its risk of complications. Medical Records Attestation: I reviewed the patient's medical records. Discharge Plan Discharge Chief Complaint: Back Pain/Injury Clinical Impression: Lumbar radiculopathy Patient Disposition: Home, Self-Care Prescriptions / Home Meds: New hydrocodone-acetaminophen 5-325 mg tablet 1 tab PO Q6H PRN (Reason: pain) 3 Days Qty: 12 0RF Rx Instructions: DX: M54.5 methocarbamol 750 mg tablet 750 mg PO TID PRN (Reason: pain) Qty: 20 0RF methylprednisolone [Medrol (Rustam)] 4 mg tablets,dose pack See Rx Instructions .ROUTE .COMPLEX Qty: 21 0RF Rx Instructions: Taper as directed Print Language: Moroccan Instructions: Acute Low Back Pain (ED) Referrals: Brayden Man MD [Primary Care Provider, Family Practice] - 1 week Documented by User: Ezio Dill MD 02/06/25 22:21 HPI HPI - Back Pain/Injury General Chief Complaint: Back Pain/Injury Stated Complaint: back pain Time Seen by Provider: 02/06/25 20:03 Related Data Previous Rx's ?Medication ?Instructions ?Recorded hydrocodone 5 mg-acetaminophen 325 1 tab PO Q6H PRN pain 3 days #12 02/06/25 mg tablet tabs methocarbamol 750 mg tablet 750 mg PO TID PRN pain #20 tabs 02/06/25 methylprednisolone 4 mg tablets in See Rx Instructions .Route 02/06/25 a dose pack (Medrol (Rustam)) .COMPLEX #21 ea Allergies Allergy/AdvReac Type Severity Reaction Status Date / Time No Known Drug Allergies Allergy Verified 02/06/25 20:08 Opioid HPI Opioid Management Most Recent Opioid Data: Last Pain Scale 3 Today, 21:24 PFSH PFSH Social History Little interest or pleasure in doing things: not at all Feeling down, depressed, or hopeless: not at all Exam Constitutional Vital Signs, click to edit/add: Last Vital Signs Temp 98.7 F 02/06/25 20:08 Pulse 59 L 02/06/25 20:08 Resp 18 02/06/25 20:08 BP 131/90 02/06/25 20:08 Pulse Ox 99 02/06/25 20:08 O2 Del Method Room Air 02/06/25 20:08 Course Vital Signs Vital signs: Vital Signs Temperature 98.7 F 02/06/25 20:08 Pulse Rate 59 L 02/06/25 20:08 Respiratory Rate 18 02/06/25 20:08 Blood Pressure 131/90 02/06/25 20:08 Pulse Oximetry 99 02/06/25 20:08 Oxygen Delivery Method Room Air 02/06/25 20:08 Temperature 98.7 F 02/06/25 20:08 Pulse Rate 59 L 02/06/25 20:08 Respiratory Rate 18 02/06/25 20:08 Blood Pressure 131/90 02/06/25 20:08 Pulse Oximetry 99 02/06/25 20:08 Oxygen Delivery Method Room Air 02/06/25 20:08 MDM - Back Pain/Injury MDM Narrative Medical decision making narrative: 2151: Patient medicated for pain, she has a benign neuroexam with no evidence of focal neurodeficit. CT of the lumbar spine is pending at this time. Case is turned over to attending physician for reevaluation and disposition. CT returned without acute findings. patient informed of the above. patient discharged home SHARED APC VISIT, PHYSICIAN ATTESTATION: [id number] I performed a substantive part of the MDM during the patient?s E/M visit. I personally evaluated and examined the patient. I personally made or approved the documented management plan and acknowledge its risk of complications. Discharge Plan Discharge Chief Complaint: Back Pain/Injury Clinical Impression: Lumbar radiculopathy Patient Disposition: Home, Self-Care Prescriptions / Home Meds: New hydrocodone-acetaminophen 5-325 mg tablet 1 tab PO Q6H PRN (Reason: pain) 3 Days Qty: 12 0RF Rx Instructions: DX: M54.5 methocarbamol 750 mg tablet 750 mg PO TID PRN (Reason: pain) Qty: 20 0RF methylprednisolone [Medrol (Rustam)] 4 mg tablets,dose pack See Rx Instructions .ROUTE .COMPLEX Qty: 21 0RF Rx Instructions: Taper as directed Print Language: Moroccan Instructions: Acute Low Back Pain (ED) Referrals: Brayden Man MD [Primary Care Provider, Family Practice] - 1 week
[2025-02-06] MEDS: OXYCODONE HCL/ACETAMINOPHEN 5MG/325MG 1 TAB PO (20:33)
[2025-02-06] MEDS: KETOROLAC TROMETHAMINE 10 MG TABLET PO (20:33)
[2025-02-06] MEDS: METHOCARBAMOL 500 MG TABLET 1000 MG PO (20:33)
[2025-02-06] MEDS: HYDROCODONE/ACET 5-325 MG TABLET 2 TAB PO (22:35)
[2025-02-06 22:39] VITALS: BP 122/68; PULSE 58; O2SAT 98
== END 2025-02-06 22:41 | disposition home or self-care (01) ==
PROVIDERS: Emergency Provider Internal Medicine; PCP Family Medicine
DX: M54.16 Radiculopathy, lumbar region (principal)
CPT/HCPCS: 72131; 99284